=== PATIENT | female | born 1975 | race Two or more races ===

== ENCOUNTER 2017-12-28 08:37 | Emergency (ER) | payer OTHER ==
[~2017-12-28] VITALS: Ht 172.7 cm; Wt 106.6 kg
[~2017-12-28 08:37] MED LIST: LISI-603 PO
[2017-12-28 08:40] VITALS: BP 156/95
--- NOTE | 2017-12-28 09:21 | NUR ---
X-RAY TECH AT BEDSIDE
== END 2017-12-28 09:51 | disposition home or self-care (01) ==
LOC: ER 08:41
DX: J22 Unspecified acute lower respiratory infection (principal); I10 Essential (primary) hypertension; Z98.890 Other specified postprocedural states; Z98.82 Breast implant status; Z88.8 Allergy status to other drugs, medicaments and biological substances
CPT/HCPCS: 71045-TC; A4606; Z7610

== ENCOUNTER 2018-10-29 08:02 | Emergency (ER) | payer OTHER ==
[~2018-10-29] VITALS: Ht 177.8 cm; Wt 103.4 kg
[2018-10-29] MEDS ORDERED: ONDANSETRON 4 MG TAB.RAPDIS ONE (08:24)
[2018-10-29] MEDS ORDERED: ONDANSETRON 4 MG TAB.RAPDIS SL ONE (08:30)
--- NOTE | 2018-10-29 08:30 | NUR ---
URINE SPECIMEN COLLECTED SENT TO LAB.
[2018-10-29 08:36] VITALS: BP 165/108
[2018-10-29 08:45] LABS: APPEARANCE,URINE Clear (CLEAR); BILIRUBIN,URINE Negative (NEGATIVE); BLOOD, URINE Negative Ery/uL (NEGATIVE); COLOR,URINE Orange (YELLOW); KETONES,URINE Negative (NEGATIVE); LEUKOCYTE ESTERASE ,URINE Negative (NEGATIVE); NITRITE, URINE Positive (NEGATIVE); PROTEIN,URINE Negative (NEGATIVE); UGLUCOSE 100 MG/DL mg/dL (NEGATIVE); UROBILINOGEN,URINE 0.2 EU/dL (0.2)
--- NOTE | 2018-10-29 08:45 | NUR ---
CHAPERONED DR MAYNARD WHILE DOING PELVIC EXAM.
[2018-10-29] MEDS ORDERED: LISINOPRIL (20MG) 20 MG TABLET PO SCH (09:00)
[2018-10-29 09:01] LABS: BACTERIA,URINE Few /HPF (None Seen); RBC,URINE NONE SEEN /HPF (0-2); WBC,URINE 0-2 /HPF (0-3)
[2018-10-29 09:02] LABS: SQUAMOUS EPITHELIAL CELL,UR Rare /HPF (None Seen)
== END 2018-10-29 09:30 | disposition home or self-care (01) ==
LOC: ER 08:03
DX: B37.3 Candidiasis of vulva and vagina (principal); I10 Essential (primary) hypertension; Z98.890 Other specified postprocedural states; Z88.8 Allergy status to other drugs, medicaments and biological substances; Z79.899 Other long term (current) drug therapy
CPT/HCPCS: 81001; 84703; 99283; Q0162; 81000-TC

== ENCOUNTER 2022-03-14 04:57 | Emergency (ER) | payer OTHER ==
[~2022-03-14] VITALS: Ht 175.3 cm; Wt 95.3 kg
[~2022-03-14 04:57] MED LIST changes: -LISI-603 PO; +LISI20TA30 PO
--- NOTE | 2022-03-14 06:07 | NUR ---
BIBS C/O L RIB PAIN S/P FALL YESTERDAY. PT STATES SHE HIT HER L SIDE ON THE BATHTUB. ENDORSES INCREASED PAIN WITH BREATHING. PT AWAKE AND ALERT IN NO RESP DISTRESS 100% RA. V/S WNL.
[2022-03-14] MEDS ORDERED: KETOROLAC TROMETHAMINE INJ 30 MG/ML VIAL ONE (06:12)
[2022-03-14] MEDS ORDERED: LIDOCAINE 5% (PATCH) 1 EA PATCH TP ONE ×2 (06:19→06:30)
[2022-03-14] MEDS ORDERED: KETOROLAC TROMETHAMINE INJ 30 MG/ML VIAL IM ONE (06:30)
--- NOTE | 2022-03-14 06:32 | NUR ---
PT BEING TRANSPORTED RADIOLOGY FOR XRAY
--- NOTE | 2022-03-14 06:48 | NUR ---
PT BACK TO ER FROM XRAY
[2022-03-14] MEDS ORDERED: LIDO30AD10 TP (07:13)
--- NOTE | 2022-03-14 07:55 | NUR ---
EDUCATED PT AND DEMONSTRATED HOW TO USE VOLUMETRIC HISTOLOGY TECHNICIAN - PT ABLE TO PERFORM TASK AND COOPERATIVE AT THIS TIME
--- NOTE | 2022-03-14 08:29 | NUR ---
NOVARAD DOWN PER RADIOLOGY SO NO READING AT THIS TIME; WILL BACK WHEN AVAILABLE.
--- NOTE | 2022-03-14 08:47 | NUR ---
Patient discharged to home in stable condition. Written and verbal after care instructions given. Patient verbalizes understanding of instruction.
[2022-03-14 08:48] VITALS: BP 120/82
== END 2022-03-14 08:48 | disposition home or self-care (01) ==
LOC: ER 05:00
DX: S20.212A Contusion of left front wall of thorax, initial encounter (principal); I10 Essential (primary) hypertension; Z98.86 Personal history of breast implant removal; Z88.8 Allergy status to other drugs, medicaments and biological substances; Z79.899 Other long term (current) drug therapy; W18.30XA Fall on same level, unspecified, initial encounter; Y93.89 Activity, other specified; Y92.89 Other specified places as the place of occurrence of the external cause; Y99.8 Other external cause status
CPT/HCPCS: 99283; 96372; 71100; J1885

== ENCOUNTER 2022-12-12 14:33 | Emergency (ER) | payer OTHER ==
[~2022-12-12] VITALS: Ht 175.3 cm; Wt 90.7 kg
[~2022-12-12 14:33] MED LIST changes: +LIDO30AD10 TP
[2022-12-12] MEDS ORDERED: KETOROLAC TROMETHAMINE INJ 30 MG/ML VIAL ONE (15:19)
[2022-12-12] MEDS ORDERED: LIDOCAINE 5% (PATCH) 1 EA PATCH TP ONE ×2 (15:19→15:30)
[2022-12-12] MEDS ORDERED: KETOROLAC TROMETHAMINE INJ 60 MG/2 ML VIAL IM ONE (15:30)
[2022-12-12] MEDS ORDERED: KETO10TA2 PO (17:52)
[2022-12-12] MEDS ORDERED: LIDO30AD10 TP (17:52)
[2022-12-12 18:01] VITALS: BP 132/88; TEMP 98.4; O2SAT 100
== END 2022-12-12 19:00 | disposition home or self-care (01) ==
LOC: ER 14:41
DX: S43.001A Unspecified subluxation of right shoulder joint, initial encounter (principal); G89.29 Other chronic pain; M25.511 Pain in right shoulder; M19.011 Primary osteoarthritis, right shoulder; M54.2 Cervicalgia; I10 Essential (primary) hypertension; Z88.8 Allergy status to other drugs, medicaments and biological substances; X58.XXXA Exposure to other specified factors, initial encounter; Y93.89 Activity, other specified; Y92.89 Other specified places as the place of occurrence of the external cause; Y99.8 Other external cause status
CPT/HCPCS: 99285; 72125; 96372; 73200; J1885